=== PATIENT | female | born 1995 | race Hispanic/Latino ===

== ENCOUNTER 2018-09-20 17:17 | Observation (INO) | payer MEDICAID ==
[2018-09-20 18:10] LABS: BASOPHILS % (AUTO) 0.2 % (0.0-5.0); EOSINOPHILS % (AUTO) 0.5 % (0.0-8.0); HEMATOCRIT 31.1 % (36-48); LYMPHOCYTES % (AUTO) 32.3 % (21.0-51.0); MEAN CORPUSCULAR HEMOGLOBIN 23.6 pg (27.0-33.0); MEAN CORPUSCULAR HGB CONC 32.1 g/dL (32.0-36.0); MEAN CORPUSCULAR VOLUME 73.6 fL (79-99); MONOCYTES % (AUTO) 5.8 % (3.0-13.0); NEUTROPHILS % (AUTO) 61.2 % (40.0-77.0); NUCLEATED RED BLOOD CELLS 0.2 % (0.0-0.19); PLATELET COUNT (AUTO) 171 K/uL (130-400); RED BLOOD CELL COUNT(AUTO) 4.22 MIL/uL (4.00-5.50); RED CELL DISTRIBUTION WIDTH 19.2 % (11.0-15.5); WHITE BLOOD COUNT (AUTO) 7.2 K/uL (4.8-10.8)
[2018-09-20 18:19] LABS: CREATININE 0.6 mg/dL (0.5-1.5); POTASSIUM 4.1 mmol/L (3.5-5.1)
[2018-09-20 18:26] LABS: ALBUMIN 2.7 g/dL (3.5-5.0); BILIRUBIN,TOTAL 0.2 mg/dL (0.2-1.0); TOTAL PROTEIN, SERUM 6.7 g/dL (6.0-8.3); URIC ACID 4.4 mg/dL (2.6-7.2)
[2018-09-20 18:29] LABS: APPEARANCE,URINE Clear (CLEAR); BILIRUBIN,URINE Negative (NEGATIVE); COLOR,URINE Yellow (YELLOW); GLUCOSE, URINE (UA) Negative (NEGATIVE); KETONES,URINE Negative (NEGATIVE); LEUKOCYTE ESTERASE ,URINE Small (NEGATIVE); NITRATE,URINE Negative (NEGATIVE); OCCULT BLOOD,URINE Negative (NEGATIVE); PROTEIN,URINE Negative (NEGATIVE); UROBILINOGEN,URINE 0.2 mg/dL (0.2-1.0)
[2018-09-20 18:38] LABS: BACTERIA,URINE Rare /HPF (None Seen); RBC,URINE None Seen /HPF (0-1)
[2018-09-20 18:40] LABS: INR 0.85 (0.85-1.15); PARTIAL THROMBOPLASTIN TIME 26.5 SEC (26.3-35.5)
[2018-09-20 18:45] LABS: AMPHET/METH SCREEN,URINE NEGATIVE (NEGATIVE); BARBITURATE SCREEN, URINE NEGATIVE (NEGATIVE); BENZODIAZEPINES SCREEN,URINE NEGATIVE (NEGATIVE); CANNABINOID SCREEN,URINE NEGATIVE (NEGATIVE); COCAINE SCREEN,URINE NEGATIVE (NEGATIVE); OPIATE SCREEN,URINE NEGATIVE (NEGATIVE); PHENCYCLIDINE SCREEN,URINE NEGATIVE (NEGATIVE)
== END 2018-09-20 19:50 | disposition home or self-care (01) ==
LOC: LDH 17:17
PROVIDERS: ADMIT Obstetrics & Gynecology; ATTEND Obstetrics & Gynecology
DX: O60.03 Preterm labor without delivery, third trimester (principal); O26.893 Other specified pregnancy related conditions, third trimester; O12.03 Gestational edema, third trimester; R51 Headache; R00.0 Tachycardia, unspecified; Z3A.37 37 weeks gestation of pregnancy; Z79.899 Other long term (current) drug therapy
CPT/HCPCS: 36415; 80053; 80305; 81001; 84550; 85025; 85384; 85610; 85730; G0378 ×4

== ENCOUNTER 2018-09-21 11:10 | Observation (INO) | payer MEDICAID ==
[~2018-09-21] VITALS: Ht 154.9 cm; Wt 88.5 kg
[2018-09-21] MEDS ORDERED: CEFTRIAXONE SODIUM 1 GM IVP SCH (11:45)
[2018-09-21 11:54] LABS: APPEARANCE,URINE Clear (CLEAR); BILIRUBIN,URINE Negative (NEGATIVE); COLOR,URINE Yellow (YELLOW); GLUCOSE, URINE (UA) Negative (NEGATIVE); KETONES,URINE Negative (NEGATIVE); LEUKOCYTE ESTERASE ,URINE Small (NEGATIVE); NITRATE,URINE Negative (NEGATIVE); OCCULT BLOOD,URINE Negative (NEGATIVE); PROTEIN,URINE Negative (NEGATIVE); UROBILINOGEN,URINE 0.2 mg/dL (0.2-1.0)
[2018-09-21 11:55] LABS: HEMATOCRIT 32.4 % (36-48); MEAN CORPUSCULAR HEMOGLOBIN 23.8 pg (27.0-33.0); MEAN CORPUSCULAR HGB CONC 31.9 g/dL (32.0-36.0); MEAN CORPUSCULAR VOLUME 74.6 fL (79-99); NUCLEATED RED BLOOD CELLS 0.1 % (0.0-0.19); PLATELET COUNT (AUTO) 163 K/uL (130-400); RED BLOOD CELL COUNT(AUTO) 4.34 MIL/uL (4.00-5.50); RED CELL DISTRIBUTION WIDTH 18.9 % (11.0-15.5); WHITE BLOOD COUNT (AUTO) 7.6 K/uL (4.8-10.8)
[2018-09-21 11:59] LABS: BACTERIA,URINE Rare /HPF (None Seen); RBC,URINE None Seen /HPF (0-1); SQUAMOUS EPITHELIAL CELL,UR Rare /HPF (0-2); WBC,URINE None Seen /HPF (0-1)
[2018-09-21 12:02] LABS: CREATININE 0.6 mg/dL (0.5-1.5); POTASSIUM 3.9 mmol/L (3.5-5.1)
[2018-09-21 12:07] LABS: ALBUMIN 2.6 g/dL (3.5-5.0); BILIRUBIN,TOTAL 0.4 mg/dL (0.2-1.0); TOTAL PROTEIN, SERUM 6.6 g/dL (6.0-8.3); URIC ACID 4.3 mg/dL (2.6-7.2)
[2018-09-21 12:11] LABS: INR 0.84 (0.85-1.15); PARTIAL THROMBOPLASTIN TIME 27.1 SEC (26.3-35.5); PROTHROMBIN TIME 8.9 SEC (9.6-11.6)
[2018-09-21] MEDS ORDERED: LACTATED RINGERS 1000ML 1,000 ML IV SCH (12:30)
== END 2018-09-21 14:00 | disposition home or self-care (01) ==
LOC: LDH 11:10
PROVIDERS: ADMIT Obstetrics & Gynecology; ATTEND Obstetrics & Gynecology
DX: O26.893 Other specified pregnancy related conditions, third trimester (principal); R03.0 Elevated blood-pressure reading, without diagnosis of hypertension; O36.8130 Decreased fetal movements, third trimester, not applicable or unspecified; Z3A.38 38 weeks gestation of pregnancy
CPT/HCPCS: 36415; 59025; 76819; 80053; 84550; 85027; 85384; 85610; 85730; 96374; A4218; G0378 ×3; J0696; J7120; 96360

== ENCOUNTER 2018-11-13 05:30 | Day surgery (SDC) | payer MEDICAID ==
[2018-11-12 16:28] LABS: BASOPHILS % (AUTO) 0.3 % (0.0-5.0); EOSINOPHILS % (AUTO) 1.5 % (0.0-8.0); HEMATOCRIT 32.9 % (36-48); LYMPHOCYTES % (AUTO) 30.6 % (21.0-51.0); MEAN CORPUSCULAR HEMOGLOBIN 22.8 pg (27.0-33.0); MEAN CORPUSCULAR VOLUME 73.5 fL (79-99); MONOCYTES % (AUTO) 7.2 % (3.0-13.0); NEUTROPHILS % (AUTO) 60.4 % (40.0-77.0); PLATELET COUNT (AUTO) 337 K/uL (130-400); RED BLOOD CELL COUNT(AUTO) 4.47 MIL/uL (4.00-5.50); RED CELL DISTRIBUTION WIDTH 18.8 % (11.0-15.5); WHITE BLOOD COUNT (AUTO) 7.2 K/uL (4.8-10.8)
[2018-11-12 16:32] VITALS: BP 105/60
[~2018-11-13] VITALS: Ht 154.9 cm; Wt 77.6 kg
[2018-11-13] VITALS (16 sets, daily range): BP systolic 98–143; BP diastolic 42–74
[2018-11-13] MEDS ORDERED: LACTATED RINGERS 1000ML 1,000 ML IV ONE (06:00)
[2018-11-13] MEDS ORDERED: MIDAZOLAM HCL 1 MG/ML 2ML VIAL ONE (07:46)
[2018-11-13] MEDS ORDERED: SUCCINYLCHOLINE 200MG/10ML SYR ONE (07:47)
[2018-11-13] MEDS ORDERED: LIDOCAINE PF 2% 5ML ABBOJECT ONE (07:47)
[2018-11-13] MEDS ORDERED: ONDANSETRON HCL 4 MG/2 ML VIAL ONE (07:48)
[2018-11-13] MEDS ORDERED: PROPOFOL 10 MG/ML 20ML VIAL IV ONE ×2 (07:49→08:15)
[2018-11-13] MEDS ORDERED: ROCURONIUM 10MG/1ML SYR 10 MG/ML ML ONE ×2 (07:49→07:52)
[2018-11-13] MEDS ORDERED: FENTANYL CITRATE PF 50 MCG/1 ML 2ML VIAL ONE (07:51)
[2018-11-13] MEDS ORDERED: LACTATED RINGERS 1000ML 1,000 ML IV SCH (08:00)
[2018-11-13] MEDS ORDERED: GLYCOPYRROLATE 1 MG/5 ML SYRINGE ONE (08:34)
[2018-11-13] MEDS ORDERED: NEOSTIGMINE 5MG/5ML SYR IV ONE (08:35)
== END 2018-11-13 10:50 | disposition home or self-care (01) ==
LOC: DAH 05:30
PROVIDERS: ATTEND Obstetrics & Gynecology
DX: Z30.2 Encounter for sterilization (principal); Z68.32 Body mass index [BMI] 32.0-32.9, adult; Z79.899 Other long term (current) drug therapy; Z98.890 Other specified postprocedural states
CPT/HCPCS: 36415; 58670; 84703; 85025; 86850; 86900; 86901; A4215; A4351; A4452; A4606; A4930 ×2; C1769 ×2; J0330; J2001; J2250; J2405; J2704 ×2; J2710; J3010; J3490; J7120

== ENCOUNTER 2024-09-20 09:29 | Emergency (ER) | payer MEDICAID ==
[~2024-09-20] VITALS: Ht 154.9 cm; Wt 77.1 kg
--- NOTE | 2024-09-20 09:58 | ERN ---
ED Note History of Present Illness Stated Complaint: MIGRAINE HEADACHE Chief Complaint: Headache Time Seen by MD: 09:31 Dictation: Patient is a 29-year-old female with a past medical history of migraine who presented to the ER complaining of severe headache, she says she has took her migraine medication today 1 hour prior arrival to the emergency department but did not see medical relieved. Allergies: Coded Allergies: No Known Drug Allergies (Unverified Allergy, Unknown, 01/27/16) Home Meds No Active Prescriptions or Reported Meds Past Medical History Past Medical History: Other Additional Past Medical Hx: MIGRAINES Surgical History: Appendectomy, BTL Review of System Dictation NEGATIVE EXCEPT PER HPI Constitutional: Negative for fever,chills, and weight loss Eyes: Negative for injury, pain,redness, and discharge ENT: Negative for injury,pain or swelling Cardiovascular: denies chest pain, palpitations, and edema Respiratory: Negative for shortness of breath, cough, and wheezing, Abdomen/GI: Negative for abdominal pain, nausea, vomiting, diarrhea, and constipation Back: Negative for injury and pain : Negative for injury, bleeding and discharge MS/Extremity: Negative for injury and deformity Skin: Negative for rash, and discoloration Neuro: Reports headache. Psych: Negative for suicide ideation, homicidal ideation, and hallucinations Initial Vital Sign VS Vital Signs Date Time Temp Pulse Resp B/P (MAP) Pulse Ox O2 Delivery O2 Flow Rate FiO2 09/20/24 09:30 98.2 77 18 142/102 99 Room Air 09/20/24 10:03 0 21 Physical Exam Dictation General: awake, alert, in distress due to headache. Head/Face: Normocephalic, atraumatic Eyes: PERRL, EOMI, vision at baseline ENT: oral cavity clear, TMs clear, no signs of infection Neck: Trachea midline, supple, no nuchal rigidity Cardiovascular: RRR, normal S1/S2, No MRGs, no JVD Respiratory: CTAB, no respiratory distress, No rales or wheezes Abdomen: Soft , no tender Skin: Warm, dry, normal turgor, no rash MS/Extremity: Pulses equal, no cyanosis, neurovascular intact, FROM Neuro: COAx4, GCS 15, strength 5/5, CN 2-12 intact, normal cerebellar exam, normal gait, Psych: Normal behavior, mood, and affect normal ED Course ED Course Orders Procedure Category Date Status Time Diphenhydramine Hcl PHA 09/20/24 Complete (Benadryl Inj) 10:00 Ketorolac PHA 09/20/24 Complete Tromethamine 30mg/Ml 10:00 Metoclopramide 10 PHA 09/20/24 Complete Mg/2 Ml Vial (Reglan 1 10:00 Current Medications Medications (Trade) Dose Ordered Sig/Tim Route PRN Reason Start Time Stop Time Status Last Admin Dose Admin Diphenhydramine HCl (BENAdryl INJ) 25 mg ONCE ONCE IV 09/20/24 10:00 09/20/24 10:01 DC 09/20/24 10:21 Ketorolac Tromethamine (toRADol) 30 mg ONCE ONCE IVP 09/20/24 10:00 09/20/24 10:01 DC 09/20/24 10:20 Metoclopramide HCl (regLAN 10MG IV) 10 mg ONCE ONCE IVP 09/20/24 10:00 09/20/24 10:01 DC 09/20/24 10:21 Vital Signs Date Time Temp Pulse Resp B/P (MAP) Pulse Ox O2 Delivery O2 Flow Rate FiO2 09/20/24 10:03 98.2 75 16 140/100 98 Room Air* 0 21 09/20/24 09:30 98.2 77 18 142/102 99 Room Air Medical Decision Making MDM 29-year-old female with a past medical history of headache, migraine. Presented with severe headache. Migraine exacerbation. Reglan 10 mg IV plus ketorolac 30 mg IV plus Benadryl 25 mg IV ordered. Patient he will be re-evaluate after medication therapy. Patient evaluated bedside, she said that headache and has improved. I will discharge patient on oral medication for migraine with the recommended to follow up with her primary care physician in next 24 hours. DX & DISP Disposition: Discharge Departure Impression: Primary Impression: Migraine Condition: Improved Scripts Butalb/Acetaminophen/Caffeine (Dslxop-Fcpmdpwz-Gnly 50-325-40) 50 Mg-325 Mg-40 Mg Tablet 1 TAB PO [id number] PRN for pain for 30 Days, #60 TAB 0 Refills Prov: VAISHALI CRUZ MD 09/20/24 Additional Instructions: RETURN TO ER FOR ANY ACUTE OR WORSENING SYMPTOMS. FOLLOW-UP IN 1-2 DAYS WITH PRIMARY PROVIDER FOR RECHECK OF TODAY'S SYMPTOMS. Referrals: ESTHER COWAN MD (PCP) Time of Disposition: 11:21 VAISHALI CRUZ MD Sep 20, 2024 09:58
[2024-09-20] MEDS: ketOROlac 30MG VIAL (30MG/ML) IVP ONE (10:20)
[2024-09-20] MEDS: DiphenhydrAMINE HCL 50 MG/ML VIAL IV ONE (10:21)
[2024-09-20] MEDS: metoCLOPRAmide 10 MG/2 ML VIAL IVP ONE (10:21)
[2024-09-20] MEDS ORDERED: BUTA-256 PO (11:22)
[2024-09-20 11:27] VITALS: BP 142/89; PULSE 75; RESP 16; TEMP 98.3; O2SAT 98
== END 2024-09-20 11:38 | disposition home or self-care (01) ==
LOC: EDH 09:29
DX: G43.909 Migraine, unspecified, not intractable, without status migrainosus (principal); Z90.49 Acquired absence of other specified parts of digestive tract; Z98.51 Tubal ligation status
CPT/HCPCS: 99284; 96374; 96375; J1885; J1200; J2765